=== PATIENT | male | born 1950 | race Caucasian/White ===

== ENCOUNTER 2017-04-06 06:20 | Inpatient (IN) | payer OTHER ==
[2017-04-06] MEDS ORDERED: ceFAZolin 1GM/50ML 50 ML IV ONE (07:13)
[2017-04-06] MEDS ORDERED: fentaNYL CITRATE 100 MCG/2 ML VL ONE ×2 (07:17→09:36)
[2017-04-06] MEDS ORDERED: MIDAZOLAM HCL 1MG/1ML-2 ML VIAL ONE (07:17)
[2017-04-06] MEDS ORDERED: PROPOFOL 10 MG/ML 20 ML IV ONE ×2 (07:18→09:40)
[2017-04-06] MEDS ORDERED: MORPHINE SULFATE 10 MG/ML INJ 1ML SDV IV PRN (07:30)
[2017-04-06] MEDS ORDERED: NITROGLYCERIN 0.4 MG SL TAB SL PRN (07:30)
[2017-04-06] MEDS ORDERED: ePHEDrine SULFATE 50 MG/ML AMP IV PRN (07:45)
[2017-04-06] MEDS ORDERED: hydrALAZINE HCL 20 MG/ML VL IV PRN (07:45)
[2017-04-06] MEDS ORDERED: ONDANSETRON HCL 4 MG/2 ML VIAL IV ONE (07:45)
[2017-04-06] MEDS ORDERED: fentaNYL CITRATE 100 MCG/2 ML VL IV ONE (08:00)
[2017-04-06 09:29] VITALS: BP 136/82
[2017-04-06] MEDS ORDERED: ROCURONIUM 10MG/ML 10ML VIAL IV ONE (09:37)
[2017-04-06] MEDS ORDERED: NEOSTIGMINE 1 MG/ML INJ (10mg/10ML VIAL) ONE (11:48)
[2017-04-06] MEDS ORDERED: GLYCOPYRROLATE 0.2 MG/ML 1ML VIAL ONE (11:48)
[2017-04-06 12:33] VITALS: BP_SYST 114; BP_SYST 125; BP_DIAS 75; BP_DIAS 84
[2017-04-06 17:13] VITALS: BP 130/74
[2017-04-06 20:00] VITALS: BP 115/68
[2017-04-06 21:43] VITALS: BP 115/68
[2017-04-07 04:37] VITALS: BP 116/74
[2017-04-07 08:00] VITALS: BP 124/76
[2017-04-07 09:11] VITALS: BP 124/76
[2017-04-07 09:31] VITALS: BP 124/76
== END 2017-04-07 09:45 | disposition home or self-care (01) | DRG 726 ==
LOC: SUR 06:20 → TELE-EAST 06:21 → EAST 10:23
PROVIDERS: ADMIT Urology; ATTEND Urology
PROC: 0VB03ZX Excision of Prostate, Percutaneous Approach, Diagnostic (ICD-10-PCS; principal; 2017-04-06 07:23)
DX: N40.0 Benign prostatic hyperplasia without lower urinary tract symptoms (principal)
CPT/HCPCS: J0690; J2250; J2704